=== PATIENT | female | born 1980 | race Caucasian/White ===

== ENCOUNTER 2016-03-28 17:31 | Emergency (ER) | payer BC ==
[~2016-03-28] VITALS: Ht 175.3 cm; Wt 89.3 kg
[2016-03-28 17:32] VITALS: TEMP 36.9; Ht 175.3 cm; Wt 89.3 kg
[2016-03-28] MEDS ORDERED: SODIUM CHLORIDE 0.9% 1000ML 1,000 ML IV STA (18:03)
[2016-03-28] MEDS: ALBUTEROL 0.5% NEB SOLN 2.5 MG/0.5 ML VIAL INH STA (18:03)
--- NOTE | 2016-03-28 18:12 | EMERGENCY ROOM VISIT NOTE ---
History Report prepared by Kj: Meron Molina Under the Supervision of: Dr. Javier Ortega M.D. First contact with patient: 17:50 Chief Complaint: CARDIAC ASSESSMENT Stated Complaint: 9 MONTHS PREG,SOB,ARITHMIA,UPPER CHEST TIGHTNESS, History of Present Illness The patient is a 35 year old female who presents to the Emergency Room with complaints of worsening shortness of breath that started this morning. The patient states that she experienced intermittent arrhythmias last night, which are normal for her. However, when she woke up this morning she had the arrhythmias along with shortness of breath and chest tightness. The patient called both of her doctors and they recommended that she come into the ED. The patient states that she is 35 weeks and her due date is April 27. This is her first . She denies any recent vaginal or rectal bleeding. The patient adds that the baby was moving a lot yesterday, but today there has been decreased movement. The patient denies any personal history of blood clots, but states that she does have a family history of blood clots. Source of History: patient Onset: this morning Position: chest Quality: other (shortness of breath) Timing: worsening Note: intermittent arrhythmias, chest tightness Review of Systems See HPI for pertinent positives & negatives. A total of 10 systems reviewed and were otherwise negative. Past Medical & Surgical Medical Problems: (1) RUQ abdominal pain Family History Cancer Diabetes mellitus Hypertension Social History Smoking Status: Never Smoker Smokeless Tobacco Use: No Alcohol Use: none Marital Status: Housing Status: lives with significant other Occupation Status: employed Current/Historical Medications Scheduled Metoprolol Succinate (Toprol Xl), 12.5 MG PO QPM Multivit/Min/Iron/Fol Ac/Pren ( Vitamin), 1 TAB PO QPM Allergies Coded Allergies: Acetaminophen (Verified Allergy, Intermediate, FACE BECOMES PAINFUL, ) Oxycodone (Verified Allergy, Intermediate, FACE BECOMES PAINFUL, 03/28/16) Amoxicillin (Verified Allergy, Mild, RASH, 03/28/16) WITH MONO Gatifloxacin (Verified Allergy, Mild, HIVES, 03/28/16) Latex (Verified Allergy, Unknown, RASH, 03/28/16) Sulfa Antibiotics (Verified Allergy, Unknown, HIVES, 03/28/16) AND DIFFICULTY BREATHING Uncoded Allergies: BANANAS (Allergy, Intermediate, RASH, 12/13/15) TASTE FUZZY CONDOMS (Adverse Reaction, Intermediate, RASH, 12/13/15) Physical Exam Vital Signs Date Time Temp Pulse Resp B/P Pulse Ox O2 Delivery O2 Flow Rate FiO2 03/28/16 21:48 77 18 107/56 100 Room Air 03/28/16 20:58 77 18 102/57 100 Room Air 03/28/16 19:41 98 Room Air 03/28/16 19:00 69 18 125/76 99 Room Air 03/28/16 18:58 98 Room Air 03/28/16 18:58 98 Room Air 03/28/16 17:59 81 03/28/16 17:32 36.9 91 18 114/78 98 Room Air Physical Exam GENERAL: Patient is a healthy-appearing well-nourished female. HEAD: Normocephalic atraumatic EYES: Ocular movements intact pupils equal and react to light OROPHARYNX mucous membranes are moist no exudates present no erythema or edema present NECK: Supple no nuchal rigidity CHEST: Good equal expansion LUNGS: Clear and equal to auscultation CARDIAC: Normal S1 and S2 ABDOMEN: Soft gravid nontender no guarding BACK: No CVA tenderness EXTREMITIES: No pain upon palpation normal muscle strength in all groups no clubbing cyanosis or edema NEURO: Patient is following commands is answering questions appropriately. Alert and oriented x3 Cranial Nerves 2-12 grossly intact Medical Decision & Procedures ER Provider Diagnostic Interpretation: US results as stated below per my review and radiologist interpretation: LIMITED (US) IMPRESSION: 1. Single viable intrauterine gestation. 2. Normal heart rate. 3. Amniotic fluid index of 15 cm. 4. Posterior placenta with no placental abnormality identified. Electronically signed by: Luis Monae M.D. 03/28/2016 8:08 PM Dictated Date/Time: 03/28/2016 8:06 PM BILATERAL LOWER EXTREMITY VENOUS DOPPLER IMPRESSION: No evidence of deep venous thrombus within the bilateral lower extremities. Electronically signed by: Luis Monae M.D. 03/28/2016 8:08 PM Dictated Date/Time: 03/28/2016 8:08 PM Laboratory Results 03/28/16 18:24 Red Blood Count 4.36, Mean Corpuscular Volume 92.0, Mean Corpuscular Hemoglobin 31.7, Mean Corpuscular Hemoglobin Concent 34.4, Mean Platelet Volume 10.9, Neutrophils (%) (Auto) 72.5, Lymphocytes (%) (Auto) 18.8, Monocytes (%) (Auto) 7.8, Eosinophils (%) (Auto) 0.4, Basophils (%) (Auto) 0.2, Neutrophils # (Auto) 9.34, Lymphocytes # (Auto) 2.42, Monocytes # (Auto) 1.00, Eosinophils # (Auto) 0.05, Basophils # (Auto) 0.02 03/28/16 18:24 Test 03/28/16 18:24 03/28/16 18:39 03/28/16 19:00 White Blood Count 12.87 K/uL (4.8-10.8) Red Blood Count 4.36 M/uL (4.2-5.4) Hemoglobin 13.8 g/dL (12.0-16.0) Hematocrit 40.1 % (37-47) Mean Corpuscular Volume 92.0 fL (80-100) Mean Corpuscular Hemoglobin 31.7 pg (25-34) Mean Corpuscular Hemoglobin Concent 34.4 g/dl (32-36) Platelet Count 179 K/uL (130-400) Mean Platelet Volume 10.9 fL (7.4-10.4) Neutrophils (%) (Auto) 72.5 % Lymphocytes (%) (Auto) 18.8 % Monocytes (%) (Auto) 7.8 % Eosinophils (%) (Auto) 0.4 % Basophils (%) (Auto) 0.2 % Neutrophils # (Auto) 9.34 K/uL (1.4-6.5) Lymphocytes # (Auto) 2.42 K/uL (1.2-3.4) Monocytes # (Auto) 1.00 K/uL (0.11-0.59) Eosinophils # (Auto) 0.05 K/uL (0-0.5) Basophils # (Auto) 0.02 K/uL (0-0.2) RDW Standard Deviation 43.7 fL (36.4-46.3) RDW Coefficient of Variation 13.0 % (11.5-14.5) Immature Granulocyte % (Auto) 0.3 % Immature Granulocyte # (Auto) 0.04 K/uL (0.00-0.02) Anion Gap 11.0 mmol/L (3-11) Est Creatinine Clear Calc Drug Dose 115.2 ml/min Estimated GFR () 108.2 Estimated GFR (Non- 93.4 BUN/Creatinine Ratio 13.0 (10-20) Calcium Level 9.3 mg/dl (8.5-10.1) Total Bilirubin 0.4 mg/dl (0.2-1) Aspartate Amino Transf (AST/SGOT) 13 U/L (15-37) Alanine Aminotransferase (ALT/SGPT) 14 U/L (12-78) Alkaline Phosphatase 113 U/L (45-117) Total Creatine Kinase 34 U/L (26-192) Creatine Kinase MB 0.6 ng/ml (0.5-3.6) Creatine Kinase MB Ratio 1.8 (0-3.0) Troponin I < 0.015 ng/ml (0-0.045) Total Protein 8.0 gm/dl (6.4-8.2) Albumin 3.1 gm/dl (3.4-5.0) Globulin 4.9 gm/dl (2.5-4.0) Albumin/Globulin Ratio 0.6 (0.9-2) Bedside D-Dimer > 450 ng/mlFEU (0-450) Urine Color YELLOW Urine Appearance CLEAR (CLEAR) Urine pH 6.5 (4.5-7.5) Urine Specific [place] 1.004 (1.000-1.030) Urine Protein NEG (NEG) Urine Glucose (UA) NEG (NEG) Urine Ketones 1+ (NEG) Urine Occult Blood NEG (NEG) Urine Nitrite NEG (NEG) Urine Bilirubin NEG (NEG) Urine Urobilinogen NEG (NEG) Urine Leukocyte Esterase TRACE (NEG) Urine WBC (Auto) 1-5 /hpf (0-5) Urine RBC (Auto) 0-4 /hpf (0-4) Urine Hyaline Casts (Auto) 1-5 /lpf (0-5) Urine Epithelial Cells (Auto) 20-30 /lpf (0-5) Urine Bacteria (Auto) 1+ (NEG) Labs reviewed by ED physician. Medications Administered Medications (Trade) Dose Ordered Sig/Sujata Route Start Time Stop Time Status Last Admin Dose Admin Sodium Chloride (Nss 1000ml) 1,000 ml @ 999 mls/hr Q1H1M STAT IV 03/28/16 18:03 03/28/16 19:03 DC 03/28/16 19:13 999 MLS/HR Albuterol Sulfate (Ventolin 0.083% 2.5MG/3ML Neb) 2.5 mg NOW STAT INH 03/28/16 19:05 03/28/16 19:06 DC 03/28/16 19:10 2.5 MG Albuterol (Ventolin Hfa Inhaler) 2 puffs NOW ONCE INH 03/28/16 21:30 03/28/16 21:31 DC 03/28/16 21:30 2 PUFFS ECG Indication: SOB/dyspnea Rate (beats per minute): 71 Rhythm: normal sinus Findings: no acute ischemic change, no ectopy ED Course 1752: Past medical records reviewed. The patient was evaluated in room B8. A complete history and physical examination was performed. 1802: Ordered Sodium Chloride 1000 ml @ 999 mls/hr IV 1904: Ordered Albuterol Sulfate 2.5 mg INH Medical Decision Differential diagnosis: Etiologies such as infections, reactive airway disease, pneumonia, pneumothorax , COPD, CHF, cardiac ischemia, pulmonary embolism, musculoskeletal, gastrointestinal, as well as others were entertained. This is a 35-year-old female who presents emergency department complaining of shortness of breath. The patient was given a breathing treatment upon arrival to emergency Department with much improvement in her symptoms. Using shared medical decision-making and a step by step process to rule out PE, and detailing every step the way I described to the patient however would obtain I d -dimer and use it to rule out a PE however her d-dimer is elevated area due to this the patient was sent for bilateral duplexes to her lower legs. This did not show any evidence of a blood clot. Again we had a shared medical decision- making moment. Using the evidence that we had along with the fact that the patient has never felt short of breath before we decided to use a CT of the chest to rule out a PE. The patient's abdomen was shielded to protect the fetus. This did not show any evidence of PE. Based on this finding I felt that the patient can be safely discharged home. She was given an albuterol breathing treatment. She was feeling much better at the time of discharge. Patient family were in agreement with the treatment plan. Impression Primary Impression: Dyspnea Additional Impression: Bronchitis Scribe Attestation The scribe's documentation has been prepared under my direction and personally reviewed by me in its entirety. I confirm that the note above accurately reflects all work, treatment, procedures, and medical decision making performed by me. Departure Information Dispostion Home / Self-Care Referrals No Doctor, Assigned (PCP) Patient Instructions My [facility] Health Problem Qualifiers Primary Impression: Dyspnea Dyspnea type: dyspnea on exertion Qualified Codes: R06.09 - Other forms of dyspnea
[2016-03-28 18:33] LABS: BASO % 0.2 %; BASO ABS # 0.02 K/uL (0-0.2); COMPLETE YES; EOS % 0.4 %; HEMATOCRIT 40.1 % (37-47); IG% 0.3 %; LYMPH % 18.8 %; LYMPH ABS # 2.42 K/uL (1.2-3.4); MEAN CORPUSCULAR HEMOGLOBIN 31.7 pg (25-34); MEAN CORPUSCULAR HGB CONC 34.4 g/dl (32-36); MEAN PLATELET VOLUME 10.9 fL (7.4-10.4); MONO % 7.8 %; NEUT % 72.5 %; PLATELET COUNT 179 K/uL (130-400); RED BLOOD COUNT 4.36 M/uL (4.2-5.4); WHITE BLOOD COUNT 12.87 K/uL (4.8-10.8)
[2016-03-28] MEDS ORDERED: METO25TA3 PO (18:44)
[2016-03-28] MEDS ORDERED: PRENTAB26 PO (18:44)
[2016-03-28 18:58] VITALS: O2SAT 98
[2016-03-28 19:00] LABS: ALT/SGPT 14 U/L (12-78); BLOOD UREA NITROGEN 11 mg/dl (7-18); CALCIUM 9.3 mg/dl (8.5-10.1); CARBON DIOXIDE 22 mmol/L (21-32); CHLORIDE 105 mmol/L (98-107); CREATININE 0.82 mg/dl (0.60-1.20); GLUCOSE 78 mg/dl (70-99); POTASSIUM 3.8 mmol/L (3.5-5.1); SODIUM 138 mmol/L (136-145)
[2016-03-28 19:05] LABS: ALB/GLOB RATIO 0.6 (0.9-2); ALKALINE PHOSPHATASE 113 U/L (45-117); AST/SGOT 13 U/L (15-37); CKMB/CK RATIO 1.8 (0-3.0)
[2016-03-28] MEDS ORDERED: ALBUTEROL 0.083% NEBU SOLN 3 ML VIAL INH STA (19:05)
[2016-03-28 19:38] LABS: MANUAL MICROSCOPIC REQUIRED? NO; REVIEW REQ? NO; URINE APPEARANCE CLEAR (CLEAR); URINE BILIRUBIN NEG (NEG); URINE COLOR YELLOW; URINE EPITHELIAL CELL AUTO 20-30 /lpf (0-5); URINE NITRITE NEG (NEG); URINE PH 6.5 (4.5-7.5); URINE SPECIFIC GRAVITY 1.004 (1.000-1.030); UROBILINOGEN NEG (NEG)
--- NOTE | 2016-03-28 20:09 | DIAGNOSTIC IMAGING REPORT ---
LIMITED (US) CLINICAL HISTORY: . Shortness of breath. COMPARISON STUDY: No previous studies for comparison. TECHNIQUE: Transabdominal sonography of the fetus was performed. FINDINGS: A single viable intrauterine gestation is noted with normal heart rate of 136 bpm. Presentation is cephalic. Please note that a dedicated anatomical survey was not performed. Femur length measured 6.91 cm which corresponds to an estimated gestational age of 35 weeks and 3 days. Amniotic fluid index is 15 cm. Placenta is located posteriorly and is within normal limits. movement was normal. IMPRESSION: 1. Single viable intrauterine gestation. 2. Normal heart rate. 3. Amniotic fluid index of 15 cm. 4. Posterior placenta with no placental abnormality identified. Electronically signed by: Luis Monae M.D. 03/28/2016 8:08 PM Dictated Date/Time: 03/28/2016 8:06 PM
--- NOTE | 2016-03-28 20:10 | DIAGNOSTIC IMAGING REPORT ---
BILATERAL LOWER EXTREMITY VENOUS DOPPLER CLINICAL HISTORY: Shortness of breath. . COMPARISON STUDY: No previous studies for comparison. TECHNIQUE: Sonography of the deep venous system of the bilateral lower extremities was performed. Compression and augmentation were evaluated. FINDINGS: The bilateral common femoral, superficial femoral and popliteal veins were compressible. Augmentation was normal. Flow was shown within the deep calf vessels. IMPRESSION: No evidence of deep venous thrombus within the bilateral lower extremities. Electronically signed by: Luis Monae M.D. 03/28/2016 8:08 PM Dictated Date/Time: 03/28/2016 8:08 PM
[2016-03-28] MEDS ORDERED: OPTIRAY 320 IV PRN (20:30)
--- NOTE | 2016-03-28 21:18 | DIAGNOSTIC IMAGING REPORT ---
CT ANGIOGRAPHY OF THE CHEST, PULMONARY EMBOLUS PROTOCOL CLINICAL HISTORY: Shortness of breath. . COMPARISON STUDY: No previous studies for comparison. TECHNIQUE: The abdomen and pelvis were double shielded due to . Following IV administration of 82 mL of Optiray-320, helical axial images of the chest were obtained utilizing the pulmonary embolus protocol. Maximal intensity projections and sagittal and coronal reformats were viewed on an independent 3D workstation. IV contrast was administered without complication. CT DOSE: 284.24 mGy.cm FINDINGS: No pulmonary emboli are identified although the segmental and subsegmental vessels are suboptimally assessed due to respiratory motion. The size if the heart is at the upper limits of normal. There is no pericardial effusion. There is no evidence of thoracic aortic dissection. The central airways are patent. There is no consolidation to suggest pneumonia. Groundglass opacities favor atelectasis. Bony thorax and upper abdomen are unremarkable. There is no thoracic lymphadenopathy. IMPRESSION: 1. No pulmonary emboli identified although segmental and subsegmental pulmonary arteries suboptimally assessed due to respiratory motion. 2. No acute intrathoracic findings. Electronically signed by: Luis Monae M.D. 03/28/2016 9:17 PM Dictated Date/Time: 03/28/2016 9:11 PM
[2016-03-28] MEDS ORDERED: ALBUTEROL HFA 8 GM INHALER INH ONE (21:30)
[2016-03-28 21:48] VITALS: BP 107/56; PULSE 77; O2SAT 100
== END 2016-03-28 21:49 | disposition home or self-care (01) ==
LOC: C.EDB 17:32
DX: O99.513 Diseases of the respiratory system complicating pregnancy, third trimester (principal); J40 Bronchitis, not specified as acute or chronic; R06.09 Other forms of dyspnea; Z3A.35 35 weeks gestation of pregnancy; Z79.899 Other long term (current) drug therapy

== ENCOUNTER 2016-05-04 16:46 | Inpatient (IN) | payer BC ==
[~2016-05-04] VITALS: Ht 175.3 cm; Wt 91.5 kg
[~2016-05-04 16:46] MED LIST: METO25TA3 PO; PRENTAB26 PO
[2016-05-04 18:37] VITALS: Ht 175.3 cm; Wt 91.5 kg
[2016-05-04] MEDS ORDERED: LACTATED RINGER'S 1000ML 1,000 ML IV PRN (21:40)
[2016-05-04] MEDS ORDERED: VANCOMYCIN INJ 1,000 MG in SODIUM CHLORIDE 0.9% 250ML 250 ML IV ONE (22:00)
[2016-05-04 22:09] LABS: HEMATOCRIT 38.9 % (37-47); MEAN CELL VOLUME 91.3 fL (80-100); MEAN CORPUSCULAR HEMOGLOBIN 32.4 pg (25-34); MEAN CORPUSCULAR HGB CONC 35.5 g/dl (32-36); PLATELET COUNT 171 K/uL (130-400); RED BLOOD COUNT 4.26 M/uL (4.2-5.4); WHITE BLOOD COUNT 17.06 K/uL (4.8-10.8)
[2016-05-04] MEDS: METOPROLOL SUCC 25MG EXT REL TAB PO SCH (22:21)
[2016-05-04] MEDS: LACTATED RINGER'S 1000ML 1,000 ML IV SCH (22:30)
--- NOTE | 2016-05-04 22:46 | HISTORY & PHYSICAL EXAMINATION ---
DATE OF ADMISSION: 05/04/2016 CHIEF COMPLAINT: Contractions. HISTORY OF PRESENT ILLNESS: The patient is a 35-year-old, 1, para 0 at 40 weeks' and 6 days gestation who presents to labor and delivery with contractions that have been progressively increased in intensity and frequency. On arrival, she states she was frederick every 2-3 minutes and ranked them at 8/10 on the pain scale. She denies any leakage of fluid or bleeding. On admission she was found to be 2 cm, 60% effaced and -3 station. She was allowed to ambulate for a few hours. On recheck she was found to be 3 cm, 60% effaced and -3 station. The patient is very painful and is requesting epidural. She is GBS positive. care has been uncomplicated otherwise. PAST MEDICAL HISTORY: Significant for irritable bowel syndrome, gastritis, heart arrhythmia and herniated discs. PAST SURGICAL HISTORY: She had a left wrist surgery. SOCIAL HISTORY: The patient denies tobacco, alcohol or drug use. MEDICATIONS: 1. vitamins. 2. Toprol-XL 12.5 mg daily. ALLERGIES: TO ACETAMINOPHEN, AMOXICILLIN, BANANAS, CONDOMS, GATIFLOXACIN, LATEX, OXYCODONE AND SULFA ANTIBIOTICS. LABORATORIES: Blood type is A negative, group B strep positive, rubella immune, hepatitis B surface antigen negative, RPR nonreactive and HIV negative. PHYSICAL EXAMINATION: VITAL SIGNS: Blood pressure is 119/63, heart rate of 86, respiration rate of 20 and temperature of 98.3. GENERAL: The patient is awake, alert and oriented x3. She is in moderate to severe distress from her contractions. HEART: Regular rate and rhythm. LUNGS: Clear to auscultation bilaterally. ABDOMEN: Gravid uterus, appropriate for gestational age. Bowel sounds are present x4. EXTREMITIES: No clubbing, cyanosis or calf tenderness. VAGINAL EXAM: She is 3 cm, 60% effaced and -3 station. heart tones are category 1. Contractions are anywhere from 2-4 minutes. ASSESSMENT AND PLAN: A 35-year-old, 1, para 0 at 40 weeks' and 6 days gestation; will be admitted to labor and delivery for active labor. She is GBS positive with a penicillin allergy. Will begin with vancomycin for GBS prophylaxis. She may have her epidural upon request. Will augment labor as needed and anticipate vaginal delivery. [facility]
[2016-05-05] MEDS: LACTATED RINGER'S 1000ML 1,000 ML IV SCH ×3 (00:15→18:21)
[2016-05-05] MEDS ORDERED: BUPIVACAINE 0.25% 30 ML VIAL ONE ×2 (00:28→17:39)
[2016-05-05] MEDS ORDERED: EpHEDrine SULFATE INJ 50 MG/ML AMP ONE (00:29)
[2016-05-05] MEDS ORDERED: FENTANYL CITRATE INJ 50 MCG/1 ML 2 ML VIAL ONE ×2 (00:29→22:18)
[2016-05-05] MEDS ORDERED: FENTANYL 2MCG/ML ROPIV 1.25MG/ML 100ML BAG EPI ONE (00:30)
[2016-05-05] MEDS ORDERED: NALOXONE HCL INJ 1 MG in SODIUM CHLORIDE 0.9% 1000ML 1,000 ML IV PRN (01:27)
[2016-05-05] MEDS ORDERED: LACTATED RINGER'S 1000ML 500 ML IV PRN ×2 (01:27→08:15)
[2016-05-05] MEDS ORDERED: NALOXONE HCL INJ 0.4 MG/1 ML VIAL/CARP IV PRN (01:30)
[2016-05-05] MEDS ORDERED: DiphenhydrAMINE HCL 50 MG/ML VIAL IV PRN (01:30)
[2016-05-05] MEDS ORDERED: EpHEDrine SULFATE INJ 50 MG/ML AMP IV PRN (01:30)
[2016-05-05] MEDS ORDERED: ONDANSETRON INJ 2 MG/ML 2 ML VIAL IV PRN (01:30)
[2016-05-05] MEDS ORDERED: NALBUPHINE HCL INJ 10 MG/ML AMP IV PRN (01:30)
[2016-05-05] MEDS: FENTANYL 2MCG/ML ROPIV 1.25MG/ML 100ML BAG EPI PRN ×8 (06:57→21:58)
[2016-05-05] MEDS ORDERED: OXYTOCIN 30 UNITS/500ML NSS IV PRN (08:15)
[2016-05-05] MEDS ORDERED: ACETAMINOPHEN 500 MG TAB PO STA (09:47)
[2016-05-05] MEDS ORDERED: ACETAMINOPHEN 500 MG TAB PO ONE (09:48)
[2016-05-05] MEDS: VANCOMYCIN INJ 1,000 MG in SODIUM CHLORIDE 0.9% 250ML 250 ML IV PRN (13:47)
[2016-05-05] MEDS: ACETAMINOPHEN 500 MG TAB PO SCH (18:00)
--- NOTE | 2016-05-05 18:32 | Progress Note ---
Progress Note Date of Service May 05, 2016. Progress Note Patient c/o pain dispite bolus doses with epidural pcea. Level checked with alcohol swab was to approximately T10. Catheter appears to be in place at 11cm under transparent dressing. Bolused the patient with 10cc of 0.25% bupivicane thru epidural catheter with good results.
[2016-05-05] MEDS: METOPROLOL SUCC 25MG EXT REL TAB PO SCH (20:52)
[2016-05-05] MEDS ORDERED: FENTANYL 2MCG/ML ROPIV 1.25MG/ML 100ML BAG EPI PRN (21:58)
[2016-05-06] VITALS (17 sets, daily range): BP systolic 84–109; BP diastolic 51–58; PULSE 58–76; TEMP 36.6–37.5; O2SAT 91–99
[2016-05-06] MEDS: LACTATED RINGER'S 1000ML 1,000 ML IV SCH (00:53)
[2016-05-06] MEDS: VANCOMYCIN INJ 1,000 MG in SODIUM CHLORIDE 0.9% 250ML 250 ML IV PRN (01:33)
[2016-05-06] MEDS: ACETAMINOPHEN 500 MG TAB PO SCH ×3 (02:23→18:00)
[2016-05-06] MEDS ORDERED: GENTAMICIN INJ 120 MG in DEXTROSE 5% 100ML 100 ML IV SCH (03:00)
[2016-05-06] MEDS ORDERED: LACTATED RINGER'S 1000ML 1,000 ML IV SCH ×2 (03:38→06:20)
[2016-05-06] MEDS ORDERED: CITRIC ACID/SODIUM CITRATE 15 ML UDC PO STA (03:42)
[2016-05-06] MEDS ORDERED: MoRPHine SULFATE PF 1 MG/ML 10 ML AMP/VIAL ONE (04:07)
[2016-05-06] MEDS ORDERED: SUCCINYLCHOLINE CHLORIDE 20 MG/ML 10 ML VIAL IV ONE (04:07)
[2016-05-06] MEDS ORDERED: FENTANYL CITRATE INJ 50 MCG/1 ML 2 ML VIAL ONE (04:07)
[2016-05-06] MEDS ORDERED: PROPOFOL IV EMULSION 10 MG/ML 20 ML VIAL IV ONE ×2 (04:07→05:56)
[2016-05-06] MEDS ORDERED: OXYTOCIN INJ 10 UNITS/ML VIAL ONE (04:07)
[2016-05-06] MEDS ORDERED: LIDOCAINE 2% 20 MG/ML 5ML SYR ONE (05:30)
[2016-05-06] MEDS ORDERED: PHENYLEPHRINE 100MCG/ML 5ML SYR ONE (05:30)
[2016-05-06] MEDS ORDERED: KETOROLAC TROMETHAMINE 30 MG/ML VIAL ONE (05:30)
[2016-05-06] MEDS ORDERED: ONDANSETRON INJ 2 MG/ML 2 ML VIAL ONE (05:31)
[2016-05-06] MEDS ORDERED: CLINDAMYCIN IV 900 MG in DEXTROSE 5% ADD-VANTAGE 100ML 100 ML IV SCH (06:00)
--- NOTE | 2016-05-06 06:21 | Anesthesia Procedure Note ---
Anesthesia Epidural Removal Nt Date & Time May 06, 2016 at 06:21 Vital Signs Pain Intensity: 1.0 Notes Mental Status: alert / awake / arousable, participated in evaluation Nausea / Vomiting: adequately controlled Pain: adequately controlled Airway Patency, RR, SpO2: stable & adequate BP & HR: stable & adequate Hydration State: stable & adequate Neuraxial Anesthesia: was administered Anesthetic Complications: no major complications apparent, pt satisfied with anesthetic care Epidural: removed without complications, with tip intact
--- NOTE | 2016-05-06 06:22 | Anesthesiology Progress Note ---
Anesthesia Post Op Note Date & Time May 06, 2016 at 06:22 Vital Signs Pain Intensity: 1.0 Notes Mental Status: alert / awake / arousable, participated in evaluation Pt Amnestic to Procedure: Yes Nausea / Vomiting: adequately controlled Pain: adequately controlled Airway Patency, RR, SpO2: stable & adequate BP & HR: stable & adequate Hydration State: stable & adequate Anesthetic Complications: no major complications apparent
[2016-05-06] MEDS ORDERED: BENZOCAINE 20% AER SPR 82.5 GM CAN EXT PRN (06:30)
[2016-05-06] MEDS ORDERED: NO NARCOTICS OR SEDATIVES SCH (06:30)
[2016-05-06] MEDS ORDERED: SENNA 8.6 MG TAB PO PRN (06:30)
[2016-05-06] MEDS ORDERED: SUPERCREAM 0.870 % 15GM JAR EXT PRN (06:30)
[2016-05-06] MEDS ORDERED: DC INTRASPINAL MORPHINE PRN (06:30)
[2016-05-06] MEDS ORDERED: HYDROCORTISONE ACETATE 25 MG SUPP PR PRN (06:30)
[2016-05-06] MEDS ORDERED: MEPERIDINE HCL 25 MG/ML CARP IV PRN (06:30)
[2016-05-06] MEDS ORDERED: PROMETHAZINE HCL INJ 25 MG in SODIUM CHLORIDE 0.9% 50ML 50 ML IV PRN (06:30)
[2016-05-06] MEDS ORDERED: MAGNESIUM HYDROXIDE SUSP 30 ML UDC PO PRN (06:30)
[2016-05-06] MEDS ORDERED: LANOLIN OINT EXT PRN ×2 (06:30)
[2016-05-06] MEDS ORDERED: MISOPROSTOL 200 MCG TAB PV STA (06:30)
[2016-05-06] MEDS ORDERED: MoRPHine SULFATE PF 1 MG/ML 10 ML AMP/VIAL EPI PRN (06:30)
[2016-05-06] MEDS ORDERED: MoRPHine SULFATE 2 MG/ML CARP IV PRN (06:30)
[2016-05-06] MEDS ORDERED: CONTINUE MEDICATION ONE (06:30)
--- NOTE | 2016-05-06 06:41 | [facility] Post Operative Brief Note ---
Immediate Operative Summary Operative Date May 06, 2016. Pre-Operative Diagnosis IUP AT 41.1 WEEKS tachycardia suspected chorioamnionnitis failure to descend nonreassuring heart rate CAT III Post-Operative Diagnosis SAME Procedure(s) Performed Primary Caesarean Section due to intolerance to labor and tachycardia for the of a viable female child at 0445 Surgeon Sealing Machine Operator Surgeon(s) RN Estimated Blood Loss 750 ML Findings dictated Fluids (cc crystalloids) 1700 Specimens Cord Gases Cord Blood Placenta- Exam Public Cord Blood Drains sigala Anesthesia general Complication(s) None Disposition Recovery Room / PACU
[2016-05-06] MEDS: OXYTOCIN INJ 20 UNITS in LACTATED RINGER'S 1000ML 1,000 ML IV SCH ×2 (06:42→18:29)
[2016-05-06] MEDS: DOCUSATE SODIUM 100 MG CAP PO SCH ×2 (07:40→19:41)
[2016-05-06] MEDS: PRENATAL VITAMIN TAB PO SCH (07:41)
[2016-05-06] MEDS: SIMETHICONE 80 MG CHEW PO SCH ×4 (07:41→19:41)
[2016-05-06] MEDS: FERROUS SULFATE 325 MG TAB PO SCH (07:41)
[2016-05-06] MEDS: KETOROLAC TROMETHAMINE 30 MG/ML VIAL IV. PRN ×3 (08:26→20:47)
--- NOTE | 2016-05-06 09:00 | OPERATIVE REPORT ---
DATE OF OPERATION: 05/06/2016 INDICATION FOR SURGERY: This is a 35-year-old at 41 weeks gestation who went into spontaneous labor. Labor progression required amniotomy as well as Pitocin augmentation. The patient progressed to fully dilation. heart rate; however remained in the 170s. There was suspicion for chorioamnionitis. The patient pushed 1.5 hours with no change in descent. Heart rate became nonreassuring category 3. Decision was therefore made to perform section. PREOPERATIVE DIAGNOSES: 1. at 41+ weeks. 2. tachycardia. 3. Suspected chorioamnionitis. 4. Failure to descend. 5. Nonreassuring heart rate, category 3. POSTOPERATIVE DIAGNOSIS: Same. PROCEDURE: Primary section. SURGEON: Jerson Brown M.D. ABSORPTION PLANT OPERATOR: francine sparks RN ESTIMATED BLOOD LOSS: 750 mL. IV FLUIDS: 1700. Beck catheter is 100 mL blood-tinged urine. SPECIMEN: 1. Cord blood. 2. Cord gases. 3. Placenta. DRAINS: Beck catheter. ANESTHESIA: General. COMPLICATIONS: None. DISPOSITION: Stable to recovery room. FINDINGS: Live female in occiput anterior presentation. There was no nuchal cord. Weight and Apgars in the pediatric record. Once the uterus was exteriorized, there was evident even though she had never had surgery had a lot of adhesions in the posterior uterus. There was a hematoma identified which was closed with [id number] sutures. There was good hemostasis after that closure. Both ovaries and tubes appeared grossly normal. Because of the blood tinged urine the vesicouterine peritoneum was carefully examined as well as the bladder flap. There was no sign of a laceration in the bladder. The uterus and the rest of the abdominal exam is unremarkable. PROCEDURE: The patient was taken to the operating room where she was prepped and draped in normal sterile fashion after time out was called. Decision was made to use general anesthesia because the patient had trouble with her epidural. A Pfannenstiel incision was made and carried down to the fascia incised in the midline. Fascia was incised in the midline and extended laterally on both sides. The fascia was sharply dissected off the rectus abdominis muscle. The rectus abdominis muscle was in the midline. The Bar retractor was placed in the abdomen for retraction. The vesicouterine peritoneum was identified and sharply dissected off the lower segment of the uterus. A transverse incision was made on the uterus lower segment and extended laterally on both sides. Infant's head was delivered. No nuchal cord was identified. Infant was delivered. Cord was clamped and cut and the infant handed over to the pediatric team. Cord blood was obtained and cord gas was obtained as well. The placenta was manually removed. The uterus was at this time exteriorized and cleared of all clots and debris. it was noted that the patient, even though she never had previous surgeries had significant adhesions in the posterior uterus. There was a large hematoma seen on the posterior part of the uterus and this was stabilized using CTX needle and 0 Vicryl. There was good hemostasis after that. The uterus was closed in 2 layers, first in a locking fashion and a second layer in a running fashion. There was good hemostasis at end of the closure. Copious amount of irrigation was used to irrigate the abdomen at this point. At this point, it was also noted that the bladder was blood tinged. Inspection of the vesicouterine peritoneum and the bladder did not show any laceration in the bladder. I suspect the bloody urine is from trauma to the bladder as I tried to deliver the 's head. More irrigation is used to irrigate the abdomen. There was good hemostasis. The Bar retractor is removed from the abdomen and further inspection of the vesicouterine peritoneum and the bladder flap also showed no lacerations. The peritoneum is now closed in a running fashion. Figure of eight suture is used to reapproximate the rectus abdominis muscle loosely. The fascia was closed in a running fashion with 0 Vicryl. The subQ space was reapproximated with 2-0 plain and skin was closed with 4-0 Monocryl. All instruments are removed from the abdomen and accounted for x2 including sponges and needles. Baby and mother are doing well and sent to recovery in stable condition. I attest to the content of the Intraoperative Record and any orders documented therein. Any exceptions are noted below. ROJAS
[2016-05-06] MEDS: CLINDAMYCIN IV 900 MG in DEXTROSE 5% ADD-VANTAGE 100ML 100 ML IV SCH ×2 (14:25→22:00)
[2016-05-06] MEDS: GENTAMICIN INJ 80 MG in DEXTROSE 5% 100ML 100 ML IV SCH ×2 (15:30→22:00)
[2016-05-06] MEDS: METOPROLOL SUCC 25MG EXT REL TAB PO SCH (20:52)
--- NOTE | 2016-05-06 22:01 | OB/GYN Progress Note ---
PREPARATION CENTER COORDINATOR Progress Note Date of Service: May 06, 2016. Postop check Patient is seen and examined Feels well, complains of itchiness of her chest and swelling/ flushiness of her facial skin. These started after second dose of IV AB's given this afternoon. She thinks this is similar to the reaction she had to other AB's. Pain is under control with meds No CP/ SOB/ Dizziness/ N&V/ VB/ Leg pain Not OOB yet Tolerating clears and regular diet, passed flatus Has been afebrile Baby has been doing well, breast feeding. No fever, pediatric team has not done any blood work neither started AB's. Date Time Temp Pulse Resp B/P Pulse Ox O2 Delivery O2 Flow Rate FiO2 05/06/16 21:00 16 98 05/06/16 20:00 16 98 05/06/16 19:30 36.9 76 18 88/56 99 Room Air 05/06/16 19:30 99 Room Air 05/06/16 19:30 18 99 05/06/16 18:00 16 99 05/06/16 17:00 18 96 05/06/16 16:45 36.7 65 18 85/54 96 Room Air 05/06/16 16:45 96 Room Air 05/06/16 16:00 16 95 05/06/16 15:00 20 95 05/06/16 14:00 18 93 05/06/16 13:00 16 91 05/06/16 12:05 36.8 72 18 94/58 92 Room Air 05/06/16 12:05 18 92 05/06/16 11:00 18 92 05/06/16 10:00 16 95 05/06/16 09:15 94 Room Air 05/06/16 09:15 94 Room Air 05/06/16 09:15 16 94 05/06/16 09:15 37.5 58 16 109/57 94 Room Air Repeat temp: 36.8 C UOP: 700 ml in the bag since 3 pm PE: General: Alert, orientedx3, NAD Mild flushiness fo the cheeks No rash on skin CVS: S1S2 RRR Lungs: CTAB Abd: soft, appropriately tender, ND, BS+, dressing C/D/I Lochia minimal Ext: NT, no edema, SCD's on AP: 35 yo female s/p Primary Csection, for arrest of descent, tachycardia, pod#0 VSS Afebrile doing well s/p 7 doses of IV AB ( 2 doses of vacno during labor, cephazolin before Csection , 2 doses of Clinda and Gnetamycin) Symptoms of allergic reaction to AB VSS Afebrile, no s/s of chorioamnionitis Will hold AB now Continue postop care Encourage PO intake, D/C zakiya in am
[2016-05-07] VITALS: O2SAT 95
[2016-05-07] MEDS ORDERED: DiphenhydrAMINE HCL 50 MG/ML VIAL IV PRN
[2016-05-07] MEDS ORDERED: ONDANSETRON INJ 2 MG/ML 2 ML VIAL IV PRN
[2016-05-07] MEDS: HYDROCODONE/ACETAMOPHEN 5/325MG TAB PO PRN ×7 (02:22→23:03)
[2016-05-07 04:30] VITALS: BP 89/56; PULSE 74; TEMP 37
[2016-05-07 06:07] LABS: HEMATOCRIT 28.4 % (37-47); MEAN CELL VOLUME 89.9 fL (80-100); MEAN CORPUSCULAR HEMOGLOBIN 31.6 pg (25-34); MEAN CORPUSCULAR HGB CONC 35.2 g/dl (32-36); MEAN PLATELET VOLUME 10.2 fL (7.4-10.4); PLATELET COUNT 124 K/uL (130-400); RED BLOOD COUNT 3.16 M/uL (4.2-5.4); WHITE BLOOD COUNT 19.53 K/uL (4.8-10.8)
[2016-05-07 06:57] LABS: BASO % 0.1 %; BASO ABS # 0.02 K/uL (0-0.2); COMPLETE YES; EOS % 0.5 %; IG% 0.4 %; LYMPH % 6.4 %; LYMPH ABS # 1.25 K/uL (1.2-3.4); MONO % 6.2 %; NEUT % 86.4 %
[2016-05-07 08:10] VITALS: BP 94/58; PULSE 70; TEMP 36.9; O2SAT 96
[2016-05-07] MEDS: DOCUSATE SODIUM 100 MG CAP PO SCH ×2 (08:45→19:46)
[2016-05-07] MEDS: PRENATAL VITAMIN TAB PO SCH (08:45)
[2016-05-07] MEDS: SIMETHICONE 80 MG CHEW PO SCH ×4 (08:45→19:46)
[2016-05-07] MEDS: FERROUS SULFATE 325 MG TAB PO SCH (08:45)
[2016-05-07] MEDS: ACETAMINOPHEN 500 MG TAB PO SCH ×2 (09:45→18:00)
[2016-05-07] MEDS: GENTAMICIN INJ 80 MG in DEXTROSE 5% 100ML 100 ML IV SCH (09:45)
[2016-05-07] MEDS: CLINDAMYCIN IV 900 MG in DEXTROSE 5% ADD-VANTAGE 100ML 100 ML IV SCH (09:45)
--- NOTE | 2016-05-07 11:58 | OB/GYN Progress Note ---
[facility] Progress Note Date of Service May 07, 2016. Subjective conversation w/ patient, physical exam Ambulation: ambulating normally Voiding: no voiding problems Passing Gas: Yes Diet Tolerance: Regular Diet Lochia: Small Feeding Type: Breast Feeding Pain: 07/26 Notes: Doing well. Pain well controlled. Ambulating without difficulty. Beck removed this AM. Tolerating regular diet, +flatus, -BM. Incision c/d/i. Objective Vital Signs Date Time Temp Pulse Resp B/P Pulse Ox O2 Delivery O2 Flow Rate FiO2 05/07/16 08:10 36.9 70 18 94/58 96 Room Air 05/07/16 08:10 96 Room Air 05/07/16 04:30 37.0 74 18 89/56 05/07/16 00:00 18 95 05/06/16 23:15 36.6 70 18 84/51 95 Room Air 05/06/16 23:15 95 Room Air 05/06/16 23:00 18 95 05/06/16 22:00 16 97 05/06/16 21:00 16 98 05/06/16 20:00 16 98 05/06/16 19:30 36.9 76 18 88/56 99 Room Air 05/06/16 19:30 99 Room Air 05/06/16 19:30 18 99 05/06/16 18:00 16 99 05/06/16 17:00 18 96 05/06/16 16:45 36.7 65 18 85/54 96 Room Air 05/06/16 16:45 96 Room Air 05/06/16 16:00 16 95 05/06/16 15:00 20 95 05/06/16 14:00 18 93 05/06/16 13:00 16 91 05/06/16 12:05 36.8 72 18 94/58 92 Room Air 05/06/16 12:05 18 92 Physical Exam General Appearance: WELL-APPEARING Respiratory/Chest: chest non-tender, lungs clear Cardiovascular: regular rate, rhythm Abdomen: normal bowel sounds, soft Fundus: Firm Incision Description: Clean, Dry & Intact Extremities: normal range of motion, non-tender, no calf tenderness Laboratory Results Last 24 Hours Test 05/07/16 05:55 White Blood Count 19.53 K/uL Red Blood Count 3.16 M/uL Hemoglobin 10.0 g/dL Hematocrit 28.4 % Mean Corpuscular Volume 89.9 fL Mean Corpuscular Hemoglobin 31.6 pg Mean Corpuscular Hemoglobin Concent 35.2 g/dl Platelet Count 124 K/uL Mean Platelet Volume 10.2 fL Neutrophils (%) (Auto) 86.4 % Lymphocytes (%) (Auto) 6.4 % Monocytes (%) (Auto) 6.2 % Eosinophils (%) (Auto) 0.5 % Basophils (%) (Auto) 0.1 % Neutrophils # (Auto) 16.89 K/uL Lymphocytes # (Auto) 1.25 K/uL Monocytes # (Auto) 1.21 K/uL Eosinophils # (Auto) 0.09 K/uL Basophils # (Auto) 0.02 K/uL RDW Standard Deviation 43.7 fL RDW Coefficient of Variation 13.3 % Immature Granulocyte % (Auto) 0.4 % Immature Granulocyte # (Auto) 0.07 K/uL Assessment and Plan Post-Op Day Number: 1 Continue Routine Care: -Continue routine postop care
[2016-05-07 15:45] VITALS: BP 113/69; PULSE 90; TEMP 36.7; O2SAT 98
[2016-05-07] MEDS: IBUPROFEN 600 MG TAB PO PRN ×2 (18:01→23:02)
[2016-05-07 21:00] VITALS: BP 95/59; PULSE 66
[2016-05-07] MEDS: METOPROLOL SUCC 25MG EXT REL TAB PO SCH (21:00)
[2016-05-07] MEDS ORDERED: BISACODYL 5 MG TABEC PO ONE (22:00)
[2016-05-07 23:40] VITALS: BP 94/60; PULSE 63; TEMP 36.6
[2016-05-08] MEDS: ACETAMINOPHEN 500 MG TAB PO SCH ×3 (02:00→18:00)
[2016-05-08] MEDS: HYDROCODONE/ACETAMOPHEN 5/325MG TAB PO PRN ×5 (02:43→22:24)
[2016-05-08] MEDS: IBUPROFEN 600 MG TAB PO PRN ×5 (04:21→22:24)
[2016-05-08 06:09] LABS: HEMATOCRIT 27.5 % (37-47); MEAN CELL VOLUME 91.4 fL (80-100); MEAN CORPUSCULAR HEMOGLOBIN 30.9 pg (25-34); MEAN CORPUSCULAR HGB CONC 33.8 g/dl (32-36); MEAN PLATELET VOLUME 10.3 fL (7.4-10.4); PLATELET COUNT 135 K/uL (130-400); RED BLOOD COUNT 3.01 M/uL (4.2-5.4); WHITE BLOOD COUNT 13.29 K/uL (4.8-10.8)
[2016-05-08] MEDS ORDERED: BISACODYL 10 MG SUPP PR PRN (06:30)
[2016-05-08 07:30] VITALS: BP 101/67; PULSE 71; TEMP 36.6
[2016-05-08 08:10] LABS: BASO % 0.2 %; BASO ABS # 0.02 K/uL (0-0.2); COMPLETE YES; EOS % 1.7 %; IG% 0.3 %; LYMPH % 16.9 %; LYMPH ABS # 2.25 K/uL (1.2-3.4); MONO % 6.4 %; NEUT % 74.5 %
[2016-05-08] MEDS: FERROUS SULFATE 325 MG TAB PO SCH (08:28)
[2016-05-08] MEDS: DOCUSATE SODIUM 100 MG CAP PO SCH ×2 (08:28→20:00)
[2016-05-08] MEDS: SIMETHICONE 80 MG CHEW PO SCH ×4 (08:28→20:00)
[2016-05-08] MEDS: PRENATAL VITAMIN TAB PO SCH (08:28)
--- NOTE | 2016-05-08 08:50 | Surgery Progress Note ---
Surgery Progress Note Date of Service May 08, 2016. Subjective Post OP Day: 2 + ambulating, + diet, + feeling well, + flatus, + pain controlled Objective Vital Signs: Date Time Temp Pulse Resp B/P Pulse Ox O2 Delivery O2 Flow Rate FiO2 05/08/16 07:30 Room Air 05/08/16 07:30 36.6 71 16 101/67 Room Air 05/07/16 23:40 Room Air 05/07/16 23:40 36.6 63 18 94/60 Room Air 05/07/16 21:00 66 20 95/59 Room Air 05/07/16 15:45 36.7 90 16 113/69 98 Room Air 05/07/16 15:45 98 Room Air General Appearance: no apparent distress Abdomen: non tender, non distended, soft Incision(s): clean, dry, intact Laboratory Results: Results Past 24 Hours Test 05/08/16 05:59 Range/Units White Blood Count 13.29 4.8-10.8 K/uL Red Blood Count 3.01 4.2-5.4 M/uL Hemoglobin 9.3 12.0-16.0 g/dL Hematocrit 27.5 37-47 % Mean Corpuscular Volume 91.4 80-100 fL Mean Corpuscular Hemoglobin 30.9 25-34 pg Mean Corpuscular Hemoglobin Concent 33.8 32-36 g/dl Platelet Count 135 130-400 K/uL Mean Platelet Volume 10.3 7.4-10.4 fL Neutrophils (%) (Auto) 74.5 % Lymphocytes (%) (Auto) 16.9 % Monocytes (%) (Auto) 6.4 % Eosinophils (%) (Auto) 1.7 % Basophils (%) (Auto) 0.2 % Neutrophils # (Auto) 9.91 1.4-6.5 K/uL Lymphocytes # (Auto) 2.25 1.2-3.4 K/uL Monocytes # (Auto) 0.85 0.11-0.59 K/uL Eosinophils # (Auto) 0.22 0-0.5 K/uL Basophils # (Auto) 0.02 0-0.2 K/uL RDW Standard Deviation 45.2 36.4-46.3 fL RDW Coefficient of Variation 13.6 11.5-14.5 % Immature Granulocyte % (Auto) 0.3 % Immature Granulocyte # (Auto) 0.04 0.00-0.02 K/uL Red Blood Cell Morphology Unremarkable Assessment & Plan POD#2 regular diet tent d/c in AM
[2016-05-08 15:20] VITALS: BP 96/60; PULSE 68; TEMP 36.9; O2SAT 96
[2016-05-08] MEDS: METOPROLOL SUCC 25MG EXT REL TAB PO SCH (21:00)
[2016-05-08 21:15] VITALS: BP 96/60
[2016-05-08 23:30] VITALS: BP 99/65; PULSE 64; TEMP 36.7
[2016-05-09] MEDS: IBUPROFEN 600 MG TAB PO PRN ×3 (07:27→15:47)
[2016-05-09] MEDS: DOCUSATE SODIUM 100 MG CAP PO SCH (07:28)
[2016-05-09] MEDS: HYDROCODONE/ACETAMOPHEN 5/325MG TAB PO PRN ×3 (07:28→15:47)
[2016-05-09] MEDS: PRENATAL VITAMIN TAB PO SCH (07:28)
[2016-05-09] MEDS: FERROUS SULFATE 325 MG TAB PO SCH (07:29)
[2016-05-09] MEDS: SIMETHICONE 80 MG CHEW PO SCH ×2 (07:29→11:55)
[2016-05-09 09:00] VITALS: BP 103/63; PULSE 66; TEMP 36.6; O2SAT 96
--- NOTE | 2016-05-09 09:07 | Surgery Progress Note ---
Surgery Progress Note Date of Service May 09, 2016. Subjective Post OP Day: 4 + ambulating, + bowel movement, + diet (Tolerating PO food and Meds), + feeling well, + pain controlled, No SOB, No chest pain, No complaints, No flatus, No nausea, No using MEDICAL ACCOUNTANT, No vomiting Objective Vital Signs: Date Time Temp Pulse Resp B/P Pulse Ox O2 Delivery O2 Flow Rate FiO2 05/08/16 23:30 Room Air 05/08/16 23:30 36.7 64 18 99/65 Room Air 05/08/16 21:15 96/60 05/08/16 16:30 Room Air 05/08/16 15:20 36.9 68 16 96/60 96 Room Air General Appearance: WD/WN, no apparent distress Head: normocephalic, atraumatic Neck: supple, no adenopathy, thyroid normal, no JVD, no carotid bruits, trachea midline Respiratory/Chest: chest non-tender, lungs clear, normal breath sounds, no respiratory distress, no accessory muscle use Cardiovascular: regular rate, rhythm, no edema, no gallop, no JVD, no murmur Abdomen: normal bowel sounds, non tender, non distended, soft, no organomegaly , no pulsatile mass Incision(s): clean, dry, intact, no erythema, no drainage Extremities: normal range of motion, non-tender, normal inspection, no pedal edema, no calf tenderness, normal capillary refill, pelvis stable Assessment & Plan C/sec day #4 Pt doing well has lost 10% wt - peds monitoring infant will consider disch AM
[2016-05-09] MEDS: ACETAMINOPHEN 500 MG TAB PO SCH (10:00)
--- NOTE | 2016-05-09 13:10 | Progress Note ---
Progress Note Date of Service May 09, 2016. Progress Note Baby is discharged Mom with therefore be discharged home
[2016-05-09] MEDS ORDERED: MTR600X PO (13:14)
[2016-05-09] MEDS ORDERED: CLC100 PO (13:14)
[2016-05-09] MEDS ORDERED: HYDR-5688 PO (13:14)
[2016-05-09] MEDS ORDERED: FRRS300 PO (13:14)
--- NOTE | 2016-05-09 13:15 | Discharge Instructions ---
Discharge Instructions Date of Service May 09, 2016. Admission Reason for Admission: Labor Check Discharge Discharge Diagnosis / Problem: post op c/sec Discharge Goals Goal(s): Routine recovery after Activity Recommendations Activity Limitations: as noted below ACTIVITY RECOMMENDATIONS: * Gradual return to full activity over the next 2-3 weeks. * No lifting - nothing heavier than baby over the next 2-3 weeks. * Do not engage in vigorous exercise, sexual activity or sports until cleared by your physician. * Do not drive or operate any motorized equipment until cleared by your physician. * You may shower/bathe daily. BREAST CARE: If you are not breast feeding: * Wear a supportive bra 24 hours a day for one to two weeks. * Avoid stimulating your breasts and nipples as much as possible during the first few weeks after delivery. * When taking a shower, have the warm water hit your back, not breasts. * When your breasts feel full, apply ice packs. Usually three to four times a day helps ease the discomfort. * Take a mild pain medication (Tylenol/Motrin) when you are uncomfortable. If breast feeding: * Use breast milk to lubricate nipples. Lansinoh cream may be used for sore nipples. You do not need to remove cream prior to breast feeding. If using a different brand of cream, check the label for directions regarding removal of cream prior to nursing. * Wear a supportive bra. * If having problems with breasts or breast feeding, call a hospice care sales consultant or your health care provider. OVER THE COUNTER MEDICATION: * For discomfort or pain, you may use Acetaminophen (Tylenol), Ibuprofen (Advil ), or Naproxen (Aleve) following the package directions. * For constipation you may use Colace following the package directions. SPECIAL CARE INSTRUCTIONS: When you are discharged from the hospital, it is important for you to follow the instructions listed below: * During the first week at home, you should be able to care for yourself and your baby. In addition, the usual light household activities are encouraged. * Limit your activities to the way you feel. Do not try to clean the house or move furniture. Be sensible. * If you actively engage in sports and have done so up until the time of your delivery, you may resume these activities as soon as you feel able. This may take up to one month or even longer. Use good judgment. * Continue to take your vitamins for at least six weeks after the of your baby. * Your diet need not be limited unless you were on a special diet before your delivery. Breast-feeding mothers need around 2500 calories per day and at least 64-80 ounces of fluid per day (8 to 10 glasses). * You should eat foods from the four major food groups. Crash diets or fad diets are to be avoided. Eating lean meats, fresh fruits and vegetables, low-fat dairy products, high fiber foods and a regular exercise program, will help you get back to your pre- weight without putting your health at risk. * Constipation is sometimes a problem after delivery. Take a mild laxative as needed. If breast feeding, Milk of Magnesia is acceptable to use. You may use a suppository or Fleets enema if no episiotomy. * A daily shower or tub bath is suggested. Be sure to thoroughly and gently dry the perineum. * A bloody vaginal discharge will usually continue until around four weeks post . A small amount of bleeding may continue for as long as six weeks. Vaginal discharge changes from the bright red bleeding after delivery to pink then brownish and finally yellowish-pink before becoming white and disappearing. * Bleeding may increase with activity. Your first period may come in 4-8 weeks. If you are breast feeding, your period may be delayed even longer. * Danby (sex) can begin whenever both you and your partner feel comfortable and do not have any form of genital infection. It is recommended that you wait at least six weeks for internal and external healing to occur. If you have questions, please talk to your health care practitioner. A condom should be used to prevent infection and . * Foreplay, gentle intercourse and lubrication is very important the first several times to prevent pain. A water-based lubricant such as K-Y jelly or Astroglide may be used. * Tampons and/or Douching should be avoided until after six weeks check-up. * If you have RH negative blood and your baby is RH positive, you will receive RHOGAM by injection prior to discharge. The nurse will give you a card to keep with you that has the date and place that you received RHOGAM after delivery. * During your care, you had a Rubella screen done to check for the presence of rubella antibodies in your blood. If your test was negative, you will receive a Rubella vaccine prior to discharge. This vaccine may cause a fever, soreness at the injection site and flu-like symptoms. If these symptoms persist, notify your health care practitioner. is not advised for three months after a Rubella vaccine. * Verbalizes understanding of car seat law as reviewed with patient nursing. * Car Seat hand-out given and reviewed with patient by nursing. * Shaken baby information reviewed with patient by nursing. Call you doctor if: * Heavy bleeding (saturating several pads an hour) or passing clots the size of your fist. * A fever >101 degrees F (38.3 degrees C) on two occasions four hours apart and /or chills. * Unusual pain in the pelvic or vaginal areas. Pain should improve each day . * Call the doctor for any increased redness, drainage or swelling around the incision and any pain unrelieved by prescribed pain medication. * Any signs or symptoms of phlebitis (possible blood clots forming in the veins ): leg pain, warm, red or swollen area on leg. * "Baby Blues" lasting longer than two weeks. If you have any questions or concerns, call your health care practitioner at . FOLLOW-UP VISIT: * Incision check (staple removal) in 1 week. Please call doctor's office at to set up appointment. * Please call the office at to schedule a 6 week examination. It is important you keep this appointment. * It is important for you to make arrangements for either yearly or twice yearly check-ups thereafter. . Current Hospital Diet Patient's current hospital diet: Regular OB Diet Discharge Diet Recommended Diet: Regular Diet Procedures Procedures Performed: Primary Caesarean Section due to intolerance to labor and tachycardia for the of a viable female child at [id number] Pending Studies Studies pending at discharge: no Medical Emergencies . Who to Call and When: Medical Emergencies: If at any time you feel your situation is an emergency, please call [phone] immediately. . Non-Emergent Contact Non-Emergency issues call your: Specialist . . "Provider Documentation" section prepared by Jerson Brown. VTE Core Measure Inpt VTE Proph given/why not?: Treatment not indicated
--- NOTE | 2016-05-09 14:12 | DISCHARGE SUMMARY ---
CHIEF COMPLAINT: at term. HISTORY OF PRESENT ILLNESS: This is a 35-year-old G1, P0 who was admitted on 05/05/2016 at 41 weeks and 6 days gestation. She actually was admitted when she was in labor. The patient continued to labor until 05/06/2016 when she became fully dilated. The fetus began to experience tachycardia. There was failure to descend. The patient pushed for an hour and half with no change in station. In view of the tachycardia, decision was made to perform section because of impending diagnosis of chorioamnionitis. The patient went on to deliver a live infant female by , weighing 8 pounds 7 ounces, was 8 and 9. Details of surgery and are in the respective records. The patient did well and met all milestones for day 1. Postop she was able to ambulate, tolerate p.o. food and meds. On postop day 2, which was 05/09/2015, patient continued to improve. Her diet was advanced. On postop day 3, which was 05/09/2016, patient continued to improve. She is now being discharged home in stable condition. PAST MEDICAL HISTORY: The patient has history of irritable bowel syndrome, gastritis, heart arrhythmia and herniated disc. PAST SURGICAL HISTORY: The patient has a history of left wrist surgery. SOCIAL HISTORY: The patient denies tobacco, drug or alcohol use. The patient is presently . FAMILY HISTORY: Noncontributory. ALLERGIES: THE PATIENT IS ALLERGIC TO AMOXICILLIN, OXYCODONE AND SULFA ANTIBIOTICS. REVIEW OF SYSTEMS: Negative except as dictated in the HPI. PHYSICAL EXAMINATION: GENERAL: Well-developed, well-nourished white female in no acute distress. VITAL SIGNS: Temperature on 05/09/2016 is 36.4, pulse 66, respirations 16, blood pressure 102/63. HEART: S1, S2; regular rhythm and rate. LUNGS: Clear to auscultation bilaterally. ABDOMEN: Nontender, nondistended. Positive bowel sounds. Incision is clean, dry and intact. The patient has had bowel movement. EXTREMITIES: No cyanosis, clubbing or edema. PELVIC: Decreased lochia. LABS: On 05/08/2016 showed hemoglobin of 9.3, hematocrit of 27.5, platelets 135,000. CONDITION ON DISCHARGE: Stable. OPERATION: Primary section. DISCHARGE DIAGNOSIS: Primary section. PLAN ON DISCHARGE: The patient is discharged home with instructions regarding activity, followup appointment and medications.
[2016-05-09 15:45] VITALS: BP_DIAS 63; PULSE 66; TEMP 36.6
== END 2016-05-09 16:00 | disposition home or self-care (01) | DRG 765 ==
LOC: C.LD 16:46 → C.OPB 16:46 → C.LD 21:42 → C.OPB 21:42 → C.OBG 05-06 09:16
PROVIDERS: ADMIT Obstetrics & Gynecology; ATTEND Obstetrics & Gynecology
PROC: 10D00Z1 Extraction of Products of Conception, Low, Open Approach (ICD-10-PCS; principal; 2016-05-06 04:00)
DX: O48.0 Post-term pregnancy (principal); O41.1230 Chorioamnionitis, third trimester, not applicable or unspecified; O76 Abnormality in fetal heart rate and rhythm complicating labor and delivery; Z3A.41 41 weeks gestation of pregnancy; O99.824 Streptococcus B carrier state complicating childbirth; Z88.0 Allergy status to penicillin; Z37.0 Single live birth